=== PATIENT | male | born 1940 | race Caucasian/White ===

== ENCOUNTER 2017-07-07 07:27 | Emergency (ER) | payer MEDICARE, OTHER ==
[2017-07-07 07:32] VITALS: BP 138/78
--- NOTE | 2017-07-07 07:35 | ED Physician Documentation ---
PD HPI URI - Stated complaint Stated Complaint: COUGH - Chief complaint Chief Complaint: Resp - History obtained from History obtained from: Patient - History of Present Illness Timing - onset: How many days ago (3-4) Timing duration: Days Timing details: Abrupt onset, Still present Associated symptoms: Fever, Chills, Productive cough. No: Nasal congestion, Sore throat Contributing factors: No: Sick contact, Immunocompromised Improves by: Rest Similar symptoms before: Diagnosis (bronchitis and pneumonia) Recently seen: Not recently seen Review of Systems Constitutional: reports: Fever, Chills, Myalgias Nose: denies: Rhinorrhea / runny nose, Congestion Throat: denies: Sore throat Cardiac: reports: Chest pain / pressure. denies: Palpitations, Calf pain Respiratory: reports: Dyspnea, Cough, Wheezing GI: denies: Nausea, Vomiting, Diarrhea Neurologic: reports: Generalized weakness. denies: Focal weakness, Numbness Endocrine: denies: Weight loss Immunocompromised: denies: Immunocompromised PD PAST MEDICAL HISTORY - Past Medical History Cardiovascular: High cholesterol Respiratory: None - Past Surgical History Past Surgical History: Yes HEENT: Tonsil/Adenoidectomy - Present Medications Home Medications: Ambulatory Orders Medication Instructions Recorded Confirmed Simvastatin [Zocor] 20 mg PO DAILY 09/03/16 07/07/17 Albuterol Sulf [Ventolin Hfa 1 - 2 puffs INH Q4HR PRN #1 inhaler 07/07/17 Inhaler] Amox/Clav 875/125 [Augmentin] 1 each PO BID #14 tablet 07/07/17 Aspirin [Adult Low Dose Aspirin EC] 1 tab PO DAILY 07/07/17 07/07/17 Dexamethasone [Decadron] 4 mg PO DAILY #5 tablet 07/07/17 guaiFENesin/CODEINE [Robitussin AC] 10 ml PO Q6H PRN #240 ml 07/07/17 - Allergies Allergies/Adverse Reactions: Allergies Allergy/AdvReac Type Severity Reaction Status Date / Time No Known Drug Allergies Allergy Verified 07/07/17 07:32 - Social History Does the pt smoke?: No Smoking Status: Never smoker Does the pt drink ETOH?: Yes Does the pt have substance abuse?: No - Immunizations Immunizations are current?: Yes - POLST Patient has POLST: No PD ED PE NORMAL - Vitals Vital signs reviewed: Yes - General General: Alert and oriented X 3, No acute distress, Well developed/nourished - HEENT HEENT: Pharynx benign - Neck Neck: Supple, no meningeal sign, No adenopathy - Cardiac Cardiac: RRR, No murmur - Respiratory Respiratory: Other (some wheezing and central tightness) - Abdomen Abdomen: Soft, Non tender - Back Back: No CVA TTP - Derm Derm: Normal color, Warm and dry - Extremities Extremities: No deformity, No tenderness to palpate, No calf tenderness / cord, Other (1+ edema in legs, mild.) - Neuro Neuro: Alert and oriented X 3, No motor deficit, Normal speech Results - Vitals Vitals: Oxygen O2 Source Room air - Rads (name of study) chest Radiology: Prelim report reviewed, EMP read contemporaneously (no infiltrates, no CHF.) PD MEDICAL DECISION MAKING - ED course Complexity details: reviewed results, considered differential, d/w patient Departure - Departure Disposition: 01 Home, Self Care Clinical Impression: Bronchitis Condition: Stable Record reviewed to determine appropriate education?: Yes Instructions: ED Upper Resp Infec Abx Tx Follow-Up: Christian Suazo MD [Primary Care Provider] - Prescriptions: Albuterol Sulf [Ventolin Hfa Inhaler] 1 - 2 puffs INH Q4HR PRN #1 inhaler PRN Reason: Shortness Of Air/Wheezing Amox/Clav 875/125 [Augmentin] 1 each PO BID #14 tablet Dexamethasone [Decadron] 4 mg PO DAILY #5 tablet guaiFENesin/CODEINE [Robitussin AC] 10 ml PO Q6H PRN #240 ml PRN Reason: Cough Comments: Your chest x-ray appears normal. So no pneumonia at this time. However it does sound like bronchitis which can be viral or bacterial. Given your symptoms and travel exposure, we will treated as bacterial. Use Augmentin twice daily for a week antibiotic. We will also treat with anti-inflammatory of Decadron daily for 5 more days. Use albuterol inhaler 2 puffs 4 times a day to reduce cough and improve breathing. Add cough medicine if needed. Recheck if not improved over the next week. Discharge Date/Time: 07/07/17 09:03
[2017-07-07] MEDS ORDERED: DEXAMETHASONE 10 MG/ML VIAL PO STA (07:48)
[2017-07-07] MEDS ORDERED: guaiFENesin/CODEINE 5 ML UDC PO STA (07:48)
[2017-07-07] MEDS ORDERED: guaiFENesin/CODEINE 5 ML UDC ONE (07:58)
[2017-07-07] MEDS ORDERED: DEXAMETHASONE 10 MG/ML VIAL ONE (07:58)
--- NOTE | 2017-07-07 08:26 | XRAY Preliminary Report ---
Exam: XR CHEST 2 VIEW PA/LAT IMPRESSION: No radiographically apparent acute abnormality in the chest. No significant change from p rior. Possible COPD. [facility] SITE ID: [id number]
--- NOTE | 2017-07-07 08:28 | XRAY Report ---
EXAM: CHEST RADIOGRAPHY EXAM DATE: 07/07/2017 08:16 AM. CLINICAL HISTORY: Cough for a week. COMPARISON: 09/03/2016. TECHNIQUE: 2 views. FINDINGS: Lungs/Pleura: Diffuse bilateral accentuated interstitial markings are similar to prior and likely chr onic. No focal consolidation. No pneumothorax or pleural effusion. Mild hyperinflation as before. Mediastinum: Heart and mediastinal contours are unremarkable. Aortic atherosclerosis. Other: Minimal pectus excavatum. IMPRESSION: No radiographically apparent acute abnormality in the chest. No significant change from p rior. Possible COPD. [facility] Referring Provider Line: [phone] SITE ID: [id number]
== END 2017-07-07 09:03 | disposition home or self-care (01) ==
LOC: ED 07:27
DX: J40 Bronchitis, not specified as acute or chronic (principal); E78.00 Pure hypercholesterolemia, unspecified
CPT/HCPCS: 71020; 99283; A9270

== ENCOUNTER 2018-11-06 11:01 | Emergency (ER) | payer MEDICARE, OTHER ==
[2018-11-06 11:17] VITALS: BP 113/85
[2018-11-06] MEDS ORDERED: MELOXICAM 7.5 MG TABLET PO STA (11:58)
--- NOTE | 2018-11-06 12:02 | ED Physician Documentation ---
PD HPI LOWER EXT INJURY - Stated complaint Stated Complaint: LT HIP PX - Chief complaint Chief Complaint: Ext Problem - History obtained from History obtained from: Patient - History of Present Illness PD HPI LOW EXT INJURY LOCATION: Left, Buttock Type of injury: Fall Where injury occurred: Street Timing - onset: How many weeks ago (2) Timing - details: Gradual onset, Intermittant Pain level max: 6 Pain level now: 0 Improved by: Rest Worsened by: Other (Walking) Associated symptoms: No: Weakness, Numbness, Tingling, Swelling, Discolored Contributing factors: No: Anticoagulated, Prior ortho surgery - Additional information Additional information: 78-year-old male tripped and fell on the ice a few weeks ago. He had pain for 2- 3 days, then was feeling better. Was using an ax to chop wood yesterday and is having recurrent pain today. Pain is only with walking. No pain with sitting or lying down. Better with rest and worse with walking Review of Systems Constitutional: denies: Fever, Chills Musculoskeletal: denies: Neck pain, Back pain Neurologic: denies: Focal weakness, Numbness PD PAST MEDICAL HISTORY - Past Medical History Cardiovascular: High cholesterol Respiratory: None - Past Surgical History Past Surgical History: Yes HEENT: Tonsil/Adenoidectomy - Present Medications Home Medications: Ambulatory Orders Medication Instructions Recorded Confirmed Simvastatin [Zocor] 20 mg PO DAILY 09/03/16 07/07/17 Meloxicam [Mobic] 15 mg PO DAILY PRN #20 tablet 11/06/18 - Allergies Allergies/Adverse Reactions: Allergies Allergy/AdvReac Type Severity Reaction Status Date / Time No Known Drug Allergies Allergy Verified 11/06/18 11:17 - Social History Does the pt smoke?: No Smoking Status: Never smoker Does the pt drink ETOH?: Yes Does the pt have substance abuse?: No - Immunizations Immunizations are current?: Yes - POLST Patient has POLST: No PD ED PE NORMAL - Vitals Vital signs reviewed: Yes - General General: Alert and oriented X 3, No acute distress - HEENT HEENT: Moist mucous membranes - Neck Neck: Supple, no meningeal sign, No bony TTP - Cardiac Cardiac: RRR, Strong equal pulses - Respiratory Respiratory: No respiratory distress, Clear bilaterally - Abdomen Abdomen: Soft, Non tender, Non distended - Back Back: No spinal TTP - Derm Derm: Warm and dry - Extremities Extremities: No deformity, No tenderness to palpate, Normal ROM s pain, No edema, Other (No visible ecchymosis) - Neuro Neuro: Alert and oriented X 3, No motor deficit, No sensory deficit - Psych Psych: Normal mood, Normal affect Results - Vitals Vitals: Vital Signs - 24 hr 11/06/18 11:15 Temperature 36.5 C Heart Rate 74 Respiratory 20 Rate Blood Pressure 113/85 H O2 Saturation 94 Oxygen O2 Source Room air PD MEDICAL DECISION MAKING - ED course Complexity details: considered differential, d/w patient ED course: 78-year-old male with what appears to be a left hip contusion. No bony tenderness on exam. Full range of motion of the hip without pain. Pain is only present with active range of motion. Neurovascularly intact. Will place on pain medication for home and have him use a cane to help ambulate. No evidence of bony injury. Patient counseled regarding signs and symptoms for which I believe and urgent re-evaluation would be necessary. Patient with good understanding of and agreement to plan and is comfortable going home at this time This document was made in part using voice recognition software. While efforts are made to proofread this document, sound alike and grammatical errors may occur. Departure - Departure Disposition: 01 Home, Self Care Clinical Impression: Contusion of hip, left Qualifiers: Encounter type: initial encounter Qualified Code(s): S70.02XA - Contusion of left hip, initial encounter Condition: Good Instructions: ED Contusion Hip Follow-Up: your,doctor in 1 week [Other] Prescriptions: Meloxicam [Mobic] 15 mg PO DAILY PRN #20 tablet PRN Reason: pain Comments: Use the cane as needed to help you walk. Return if you worsen. You can use heat at home for this. This should improve over the next few days. Discharge Date/Time: 11/06/18 12:12
== END 2018-11-06 12:12 | disposition home or self-care (01) ==
LOC: ED 11:01
DX: S70.02XA Contusion of left hip, initial encounter (principal); W00.0XXA Fall on same level due to ice and snow, initial encounter; Y92.410 Unspecified street and highway as the place of occurrence of the external cause; E78.00 Pure hypercholesterolemia, unspecified
CPT/HCPCS: 99283; A9270

== ENCOUNTER 2018-11-15 13:46 | Outpatient (CLI) | payer MEDICARE, OTHER ==
--- NOTE | 2018-11-16 01:43 | XRAY Report ---
Reason: LOW BACK PAIN Procedure Date: 11/15/2018 Accession Number: [id number] / [id number] Procedure: XR - Pelvis 1 View CPT Code: FULL RESULT: EXAM: PELVIS RADIOGRAPHY EXAM DATE: 11/15/2018 02:29 PM. CLINICAL HISTORY: LOW BACK PAIN. Slipped and landed on butt during the last snow, has pain in the spine and pelvis ever since. COMPARISON: LUMBAR SPINE 2 VIEW 11/15/2018 2:20 PM. TECHNIQUE: 1 view. FINDINGS: Bones: Normal. No fracture or bone lesion. Joints: Bilateral hips appear within normal limits. Mild pubic symphysis sclerosis on the left side. Sacroiliac joints appear unremarkable. Soft Tissues: Normal. No soft tissue swelling. IMPRESSION: Bilateral hips appear within normal limits. No evidence for acute fracture. [facility]
--- NOTE | 2018-11-16 23:18 | XRAY Report ---
Reason: LOW BACK PAIN Procedure Date: 11/15/2018 Accession Number: [id number] / [id number] Procedure: XR - Lumbar Spine 2 View CPT Code: FULL RESULT: EXAM: LUMBOSACRAL SPINE RADIOGRAPHY EXAM DATE: 11/15/2018 02:34 PM. CLINICAL HISTORY: LOW BACK PAIN. COMPARISONS: None. TECHNIQUE: 3 views. FINDINGS: Alignment: Mild levoscoliosis of the lumbar spine, angle of 10 degrees, apex at L2-L3. No spondylolisthesis. Bones: Five [id number] lumbar vertebral bodies are present. No fractures or bone lesions. Disks: Moderate L3-L4 degenerative disk disease with osteophytes. Moderate L2-L3 degenerative disease. Mild L5-S1 disk height loss. Facets: No degenerative changes. Soft Tissues: Unremarkable. IMPRESSION: Mild levoscoliosis of the lumbar spine. Mild to moderate degenerative disk disease. See above. [facility]
== END 2018-11-15 13:47 | disposition home or self-care (01) ==
LOC: DI 13:46
PROVIDERS: ATTEND Internal Medicine
DX: M51.36 Other intervertebral disc degeneration, lumbar region (principal); M41.86 Other forms of scoliosis, lumbar region
CPT/HCPCS: 72100; 72170

== ENCOUNTER 2018-12-25 20:30 | Outpatient (CLI) | payer MEDICARE, OTHER | END 2018-12-25 20:31 | disposition critical access hospital (66) | LOC: EMS 20:30 | PROVIDERS: ATTEND Surgery | DX: R55 Syncope and collapse (principal) | CPT/HCPCS: A0425; A0429 ==

== ENCOUNTER 2018-12-25 20:46 | Emergency (ER) | payer MEDICARE, OTHER ==
--- NOTE | 2018-12-25 20:53 | ED Physician Documentation ---
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 No: Seizure, Incontinant of urine, Incontinant of stool, Headache, Vision changes, Chest pain, Palpitations, Dyspnea, Abdominal pain Contributing factors: Noxious stimulae Injury occurred: None Pain level max: 0 Pain level now: 0 Similar symptoms before: Has not had sx before Recently seen: Not recently seen - Additional information Additional information: patient was seated at a dinner event [employer]. He was listening to a lecture, and patient was seated directly under a large heat lamp. The patient gradually johann me increasingly uncomfortable with the heat radiating from this lamp, eventually became lightheaded and diaphoretic. His next recollection is regaining consciousness on the floor. his spouse, who is in the ER at bedside, says that she noticed patient slowly began to droop his head as if falling asleep or losing consciousness. She went to try to lift his head and found that he was weak and minimally responsive. He then vomited and was helped to the floor. She estimates he was unconscious for a few minutes. He rapidly returned to baseline and is asymptomatic on presentation to ED. Review of Systems Constitutional: reports: Sweats. denies: Fever, Chills Cardiac: reports: Reviewed and negative Respiratory: reports: Reviewed and negative GI: reports: Reviewed and negative : denies: Incontinent Neurologic: reports: Syncope. denies: Focal weakness, Numbness, Seizure, Confused, Altered mental status, Headache, Head injury PD PAST MEDICAL HISTORY - Past Medical History Cardiovascular: High cholesterol Respiratory: None - Past Surgical History Past Surgical History: Yes HEENT: Tonsil/Adenoidectomy - Present Medications Home Medications: Ambulatory Orders Medication Instructions Recorded Confirmed Simvastatin [Zocor] 20 mg PO DAILY 09/03/16 07/07/17 Meloxicam [Mobic] 15 mg PO DAILY PRN #20 tablet 11/06/18 - Allergies Allergies/Adverse Reactions: Allergies Allergy/AdvReac Type Severity Reaction Status Date / Time No Known Drug Allergies Allergy Verified 12/25/18 20:50 - Social History Does the pt smoke?: No Smoking Status: Never smoker Does the pt drink ETOH?: Yes ETOH Use: Wine Does the pt have substance abuse?: No - Immunizations Immunizations are current?: Yes - POLST Patient has POLST: No PD ED PE NORMAL - Vitals Vital signs reviewed: Yes - General General: Alert and oriented X 3, No acute distress, Well developed/nourished - HEENT HEENT: Atraumatic, PERRL, EOMI, Moist mucous membranes - Neck Neck: Supple, no meningeal sign - Cardiac Cardiac: RRR, No murmur - Respiratory Respiratory: No respiratory distress, Clear bilaterally - Abdomen Abdomen: Soft, Non tender - Derm Derm: Normal color, Warm and dry - Extremities Extremities: No tenderness to palpate, Normal ROM s pain, No edema - Neuro Neuro: Alert and oriented X 3, 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, No motor deficit, No sensory deficit, Normal speech Eye Opening: Spontaneous Motor: Obeys Commands Verbal: Oriented GCS Score: 15 - Psych Psych: Normal mood, Normal affect Results - Vitals Vitals: Oxygen O2 Source Room air - EKG (time done) No standard instances Rate: Rate (enter#) (67) Rhythm: NSR, LAE [place]: Normal Intervals: Normal [place] QRS: Normal Ischemia: Normal ST segments Computer interpretation: Disagree with computer (no ST elevations) - Labs Labs: Laboratory Tests 12/25/18 12/25/18 12/25/18 21:00 21:00 21:00 WBC 5.8 RBC 4.44 L Hgb 13.3 L Hct 39.8 L MCV 89.5 MCH 29.8 MCHC 33.4 RDW 13.1 Plt Count 281 MPV 8.3 Neut # (Auto) 2.9 Lymph # (Auto) 2.2 [place] # (Auto) 0.5 Eos # (Auto) 0.2 Baso # (Auto) 0.0 Absolute Nucleated RBC 0.00 Nucleated RBC % 0.1 Sodium 135 Potassium 4.1 Chloride 98 L Carbon Dioxide 28 Anion Gap 9.0 BUN 16 Creatinine 0.8 Estimated GFR (MDRD) 93 Glucose 101 H Calcium 8.9 Troponin I < 0.04 - Rads (name of study) chest xray Radiology: Prelim report reviewed, See rad report PD MEDICAL DECISION MAKING - ED course Complexity details: reviewed results, re-evaluated patient, considered differential, d/w patient, d/w family Departure - Departure Disposition: 01 Home, Self Care Clinical Impression: Syncope Qualifiers: Syncope type: unspecified Qualified Code(s): R55 - Syncope and collapse Condition: Good Instructions: ED Syncope Vasovagal Follow-Up: Yunier Roldan MD [Primary Care Provider] - Discharge Date/Time: 12/25/18 22:23
[2018-12-25 21:33] LABS: CALCIUM 8.9 mg/dL (8.5-10.3)
[2018-12-25 21:34] LABS: BASOPHILS % (AUTO) 0.8 %; EOSINOPHILS # (AUTO) 0.2 10^3/uL (0.0-0.7); EOSINOPHILS % (AUTO) 4.3 %; HGB - HEMOGLOBIN 13.3 g/dL (14.0-18.0); LYMPHOCYTES # (AUTO) 2.2 10^3/uL (1.5-3.5); LYMPHOCYTES % (AUTO) 37.5 %; MEAN CORPUSCULAR HEMOGLOBIN 29.8 pg (27.0-31.0); MEAN CORPUSCULAR HGB CONC 33.4 g/dL (32.0-36.0); MEAN CORPUSCULAR VOLUME 89.5 fL (80.0-94.0); MEAN PLATELET VOLUME 8.3 fL (7.4-11.4); MONOCYTES # (AUTO) 0.5 10^3/uL (0.0-1.0); MONOCYTES % (AUTO) 8.3 %; NEUTROPHILS # (AUTO) 2.9 10^3/uL (1.5-6.6); NEUTROPHILS % (AUTO) 49.1 %; PLT - PLATELET COUNT 281 10^3/uL (130-450); RED BLOOD COUNT 4.44 10^6/uL (4.70-6.10); RED CELL DISTRIBUTION WIDTH 13.1 % (12.0-15.0); WHITE BLOOD COUNT 5.8 x10^3/uL (4.8-10.8)
[2018-12-25 21:48] LABS: CREATININE 0.8 mg/dL (0.6-1.2)
--- NOTE | 2018-12-25 22:02 | XRAY Report ---
Reason: syncope Procedure Date: 12/25/2018 Accession Number: [id number] / [id number] Procedure: XR - Chest 2 View X-Ray CPT Code: 82526 FULL RESULT: EXAM: CHEST RADIOGRAPHY EXAM DATE: 12/25/2018 09:44 PM. CLINICAL HISTORY: Syncopal episode today. COMPARISON: CHEST 2 VIEW PA/LAT 07/07/2017 8:03 AM. TECHNIQUE: 2 views. FINDINGS: Lungs/Pleura: Faint right perihilar airspace opacity. Mildly diminished lung volumes. No pneumothorax or pleural effusion. Mediastinum: Heart and mediastinal contours are unremarkable. Other: None. IMPRESSION: Poor inspiration with potential right perihilar airspace disease. Question aspiration. [facility]
[2018-12-25 22:17] VITALS: BP 131/56
== END 2018-12-25 22:23 | disposition home or self-care (01) ==
LOC: EDUNIT# → ED 20:46
DX: R55 Syncope and collapse (principal); E78.00 Pure hypercholesterolemia, unspecified
CPT/HCPCS: 36415; 71046; 80048; 84484; 85025; 93005; 99283; 99284

== ENCOUNTER 2021-09-04 08:07 | Emergency (ER) | payer MEDICARE, OTHER ==
[2021-09-04 08:15] VITALS: BP 160/80
--- NOTE | 2021-09-04 08:16 | ED Physician Documentation ---
PD HPI URI - Stated complaint Stated Complaint: COUGH - Chief complaint Chief Complaint: Resp - History obtained from History obtained from: Patient - History of Present Illness Timing - onset: How many days ago (3-4) Timing duration: Days Timing details: Gradual onset, Still present Associated symptoms: Fever, Sore throat, Productive cough, Dyspnea. No: Chills, Hemoptysis, Chest pain Contributing factors: Travel (was on cruise with out of [facility] last week. Return flights without obvious close contact with illness. Had COVID test on and off cruise ship. Has been vaccinated.). No: Sick contact, Unimmunized Similar symptoms before: Has not had sx before Review of Systems Constitutional: reports: Fever Nose: reports: Congestion Throat: reports: Sore throat Cardiac: denies: Chest pain / pressure Respiratory: reports: Dyspnea, Cough (productive colored sputum), Wheezing. denies: Hemoptysis GI: denies: Abdominal Pain, Nausea, Vomiting, Diarrhea Skin: denies: Rash, Lesions PD PAST MEDICAL HISTORY - Past Medical History Cardiovascular: High cholesterol Respiratory: None - Past Surgical History Past Surgical History: Yes HEENT: Tonsil/Adenoidectomy - Present Medications Home Medications: Ambulatory Orders Medication Instructions Recorded Confirmed Simvastatin [Zocor] 20 mg PO DAILY 09/03/16 07/07/17 Meloxicam [Mobic] 15 mg PO DAILY PRN #20 tablet 11/06/18 Albuterol Sulf [Ventolin Hfa 2 - 3 puffs INH QID 14 Days #1 09/04/21 Inhaler] inhaler Benzonatate [Tessalon] 100 mg PO TID PRN #20 cap 09/04/21 Doxycycline Hyclate 100 mg PO BID 7 Days #14 cap 09/04/21 dexAMETHasone [Decadron] 4 mg PO DAILY #5 tablet 09/04/21 - Allergies Allergies/Adverse Reactions: Allergies Allergy/AdvReac Type Severity Reaction Status Date / Time No Known Drug Allergies Allergy Verified 09/04/21 08:13 - Social History Does the pt smoke?: No Smoking Status: Never smoker Does the pt drink ETOH?: Yes Does the pt have substance abuse?: No - Immunizations Immunizations are current?: Yes - POLST Patient has POLST: No PD ED PE NORMAL - Vitals Vital signs reviewed: Yes - General General: Alert and oriented X 3, No acute distress, Well developed/nourished - HEENT HEENT: Pharynx benign - Neck Neck: Supple, no meningeal sign, No adenopathy - Cardiac Cardiac: RRR, No murmur - Respiratory Respiratory: No: Clear bilaterally (no coarse sounds; has exp wheezes scattered. ) - Abdomen Abdomen: Soft, Non tender Results - Vitals Vitals: Oxygen O2 Source Room air - Rads (name of study) chest xray Radiology: Prelim report reviewed (no infiltrates. ), See rad report PD MEDICAL DECISION MAKING - ED course Complexity details: considered differential (recent travel on cruise from [place]. Then travel by plane. Consider viral, but also could be bacterial, given symptoms. ), d/w patient Departure - Departure Disposition: 01 Home, Self Care Clinical Impression: Acute bronchitis Qualifiers: Bronchitis organism: unspecified organism Qualified Code(s): J20.9 - Acute bronchitis, unspecified Condition: Stable Record reviewed to determine appropriate education?: Yes Instructions: ED Upper Resp Infec Abx Tx Follow-Up: LEO RUDOLPH MD [Primary Care Provider] - Prescriptions: dexAMETHasone [Decadron] 4 mg PO DAILY #5 tablet Doxycycline Hyclate 100 mg PO BID 7 Days #14 cap Benzonatate [Tessalon] 100 mg PO TID PRN #20 cap PRN Reason: Cough Albuterol Sulf [Ventolin Hfa Inhaler] 2 - 3 puffs INH QID 14 Days #1 inhaler Comments: Your symptoms sound like bronchitis. Your chest x-ray has a faint small patch on the right lower lung field that could be a early pneumonia. These could be viral or bacterial. Your Covid test in particular will result in a day or 2. However there are other germs that can be causative for this. Use the albuterol inhaler 2 to 3 puffs 4 times a day regularly for the next week or 2. Also Decadron steroid for inflammation of the airways daily for 5 more days. Stay well-hydrated. Tylenol if needed for fever or pains. Use benzonatate if needed for cough. Given that some of these will be bacterial, we can add an antibiotic doxycycline twice daily for a week. I would anticipate improvement over the next few days. Recheck if not improving well and return to the ER if worsening. I transmitted your prescription to [facility] pharmacy in [place]. Discharge Date/Time: 09/04/21 09:36
[2021-09-04] MEDS ORDERED: diphenhydrAMINE ELIXIR 25 MG/10 ML UDC PO STA (08:30)
[2021-09-04] MEDS ORDERED: ALBUTEROL 1 PUFF INH STA (08:30)
[2021-09-04] MEDS ORDERED: DOXYCYCLINE 100 MG TABLET PO STA (08:30)
[2021-09-04] MEDS ORDERED: DEXAMETHASONE 10 MG/ML VIAL PO STA (08:30)
[2021-09-04] MEDS ORDERED: BENZONATATE 100 MG CAPSULE PO STA (08:30)
[2021-09-04] MEDS ORDERED: CHERRY SYRUP 10 ML UDC PO ONE (08:30)
--- NOTE | 2021-09-04 08:55 | XRAY Report ---
PROCEDURE: Chest 1 View X-Ray INDICATIONS: cough and wheeze for 3-4 days TECHNIQUE: One view of the chest was acquired. COMPARISON: 12/25/2018 FINDINGS: Surgical changes and devices: None. Lungs and pleura: Slightly increased interstitial markings bilaterally in the perihilar region, parti cularly in the right infrahilar region. No dense consolidations, pleural effusion, or pneumothorax. Mediastinum: Heart size is normal. Main pulmonary arteries are chronically mildly prominent. Aortic s hadow is normal. Bones and chest wall: No suspicious bony lesions. Overlying soft tissues appear unremarkable. IMPRESSION: 1. Chronic prominence of the interstitial markings with accentuation of the right infrahilar region. This may be acute on chronic interstitial lung disease. Viral pneumonitis may have this appearance. 2. Chronic pulmonary artery prominence may indicate mild emphysema or pulmonary artery hypertension. 3. No dense focal parenchymal consolidation. Reviewed by: Trina Negro MD on 09/04/2021 8:53 AM PST Approved by: Trina Negro MD on 09/04/2021 8:53 AM PST Station ID: [id number]
== END 2021-09-04 09:36 | disposition home or self-care (01) ==
LOC: ED 08:07
DX: J20.9 Acute bronchitis, unspecified (principal); Z20.822 Contact with and (suspected) exposure to COVID-19; R06.09 Other forms of dyspnea
CPT/HCPCS: 71045; 94640; 99283; 99284; A9270; U0004

== ENCOUNTER 2021-10-09 10:59 | Outpatient (CLI) | payer MEDICARE, OTHER ==
[2021-10-09 11:37] LABS: CHOLESTEROL 189 mg/dL; HDL CHOLESTEROL 64 mg/dL; LDL CHOLESTEROL,CALCULATED 108 mg/dL; LDL/HDL RATIO 1.7 (<3.6); TRIGLYCERIDES 85 mg/dL; VLDL CHOLESTEROL 17 mg/dL
== END 2021-10-09 11:00 | disposition home or self-care (01) ==
LOC: LAB 10:59
PROVIDERS: ATTEND Internal Medicine
DX: E78.5 Hyperlipidemia, unspecified (principal)
CPT/HCPCS: 36415; 80061; 83721

== ENCOUNTER 2022-02-28 09:09 | Outpatient (CLI) | payer MEDICARE, OTHER ==
[2022-02-28 09:31] LABS: BASOPHILS % (AUTO) 0.5 %; EOSINOPHILS # (AUTO) 0.4 10^3/uL (0.0-0.7); EOSINOPHILS % (AUTO) 4.8 %; HCT - HEMATOCRIT 41.8 % (42.0-52.0); HGB - HEMOGLOBIN 14.3 g/dL (14.0-18.0); LYMPHOCYTES # (AUTO) 2.7 10^3/uL (1.5-3.5); LYMPHOCYTES % (AUTO) 35.9 %; MEAN CORPUSCULAR HEMOGLOBIN 30.8 pg (27.0-31.0); MEAN CORPUSCULAR HGB CONC 34.2 g/dL (32.0-36.0); MEAN CORPUSCULAR VOLUME 89.9 fL (80.0-94.0); MEAN PLATELET VOLUME 10.3 fL (7.4-11.4); MONOCYTES # (AUTO) 0.7 10^3/uL (0.0-1.0); MONOCYTES % (AUTO) 9.6 %; NEUTROPHILS # (AUTO) 3.7 10^3/uL (1.5-6.6); NEUTROPHILS % (AUTO) 49.1 %; PLT - PLATELET COUNT 262 10^3/uL (130-450); RED BLOOD COUNT 4.65 10^6/uL (4.70-6.10); RED CELL DISTRIBUTION WIDTH 12.6 % (12.0-15.0); WHITE BLOOD COUNT 7.5 x10^3/uL (4.8-10.8)
[2022-02-28 09:46] LABS: ALBUMIN 4.2 g/dL (3.2-5.5); ALBUMIN/GLOBULIN RATIO 1.4 (1.0-2.2); ALKALINE PHOSPHATASE 45 IU/L (42-121); ALT ALANINE AMINOTRANSFERASE 29 IU/L (10-60); AST ASPARTATE AMINOTRANSFERASE 26 IU/L (10-42); BILIRUBIN,TOTAL 0.9 mg/dL (0.2-1.0); BUN - BLOOD UREA NITROGEN 19 mg/dL (6-20); CALCIUM 9.4 mg/dL (8.5-10.3); CARBON DIOXIDE - CO2 29 mmol/L (21-32); CHLORIDE 98 mmol/L (101-111); CHOL/HDL RATIO 3.1 (<5.0); CHOLESTEROL 190 mg/dL; GFR - MDRD 72 (>89); GLUCOSE 104 mg/dL (70-100); HDL CHOLESTEROL 61 mg/dL; LDL CHOLESTEROL,CALCULATED 117 mg/dL; LDL/HDL RATIO 1.9 (<3.6); POTASSIUM 4.6 mmol/L (3.5-5.0); SODIUM 135 mmol/L (135-145); TOTAL PROTEIN 7.2 g/dL (6.7-8.2); TRIGLYCERIDES 59 mg/dL; VLDL CHOLESTEROL 12 mg/dL
== END 2022-02-28 09:10 | disposition home or self-care (01) ==
LOC: LAB 09:09
PROVIDERS: ATTEND Internal Medicine
DX: E78.5 Hyperlipidemia, unspecified (principal); Z79.899 Other long term (current) drug therapy; Z20.822 Contact with and (suspected) exposure to COVID-19
CPT/HCPCS: 36415; 80053; 80061; 83721; 85025